=== PATIENT | male | born 1950 | race Caucasian/White ===

== ENCOUNTER 2023-08-21 08:23 | Inpatient (IN) | payer MEDICARE, OTHER ==
[2023-08-21 08:50] LABS: #Basophils Less than 0.03 10x3/uL (0.0-0.2); %Basophils 0.4 % (0.0-1.0); %Eosinophils 2.5 % (0.0-10.0); %Lymphocytes 11.7 % (21.0-51.0); %Monocytes 11.5 % (0.0-10.0); %Neutrophils 73.7 % (42.0-75.0); Hematocrit 34.3 % (42.0-52.0); Hemoglobin 10.9 g/dL (14.0-18.0); Mean Corpuscular HGB CONC 31.8 g/dL (32.0-36.0); Mean Corpuscular Hemoglobin 31.5 pg (27.0-31.0); Mean Corpuscular Volume 99.1 fL (78.0-98.0); Mean Platelet Volume 11.7 fL (7.4-10.4); Platelet Count 188 10x3/uL (130-400); RBC Distribution Width 14.5 % (11.5-14.5); Red Blood Cell (RBC) Count 3.46 mill/uL (4.70-6.10)
[2023-08-21 09:04] LABS: ALT (SGPT) 156 U/L (8-55); AST (SGOT) 161 U/L (5-34); Albumin 2.6 g/dL (3.4-4.8); Alkaline Phosphatase 1101 U/L (40-110); Anion Gap 14 mmol/L (10-20); BUN (Urea Nitrogen) 13 mg/dL (8.4-25.7); Bilirubin, Total 1.8 mg/dL (0.2-1.2); Calc. Creatinine Clearance 0 mL/min (70-130); Calcium 8.9 mg/dL (7.8-10.44); Carbon Dioxide 24 mmol/L (23-31); Chloride 107 mmol/L (98-107); Estimated GFR 90; Globulin 2.9 g/dL (2.4-3.5); Glucose 135 mg/dL (83-110); Lipase 28 U/L (8-78); Potassium 3.3 mmol/L (3.5-5.1); Protein, Total 5.5 g/dL (5.8-8.1); Sodium 142 mmol/L (136-145)
[2023-08-21 09:09] LABS: Troponin I 0.013 ng/mL (< 0.028)
[2023-08-21] MEDS ORDERED: Iopamidol-370 76% 500 ML MDV (1 ML CHARGE) ONE (09:16)
[2023-08-21 10:27] LABS: Bacteria/HPF 3+ HPF (None Seen); Bilirubin Negative (Negative); Blood, Urine 1+ (Negative); CAUTI Indications for Culture Alt mental st,lethar; Clarity Clear (Clear); Glucose, Urine (Dipstick) Normal (Negative); Ketone, Urine Negative (Negative); Leukocyte 500 Leu/uL (Negative); Nitrite 2+ (Negative); Protein, Urine (Dipstick) Negative (Neg-Trace); Squamous Epithelial 0-3 HPF (0-3); Urobilinogen 3 mg/dL (Less than 2); WBC/HPF Greater than 50 HPF (0-3); pH, Urine 6.5 (5.0-9.0)
[2023-08-21 10:35] LABS: Urine Culture Reflex Yes Yes
[2023-08-21] MEDS ORDERED: Sodium Chloride 0.9% 100 ML ONE (10:55)
[2023-08-21] MEDS ORDERED: cefTRIAXone (ROCEPHIN) 1 GM VIAL ONE (10:55)
[2023-08-21] MEDS ORDERED: Dextrose 5% in Water 1,000 ML IV PRN (11:08)
[2023-08-21] MEDS ORDERED: HumaLOG 300 UNITS/3 ML VIAL SC PRN ×2 (11:08)
[2023-08-21] MEDS ORDERED: Dextrose 50% Abboject 50 ML SYRINGE SLOW IVP PRN (11:08)
[2023-08-21] MEDS ORDERED: Ondansetron ODT 4 MG TAB PO PRN (11:08)
[2023-08-21] MEDS ORDERED: Acetaminophen 325 MG TAB PO PRN (11:08)
[2023-08-21] MEDS ORDERED: Glucagon 1 MG/ML KIT IM PRN (11:08)
[2023-08-21 12:25] LABS: ALT (SGPT) 155 U/L (8-55); AST (SGOT) 155 U/L (5-34); Albumin 2.6 g/dL (3.4-4.8); Alkaline Phosphatase 1120 U/L (40-110); Anion Gap 16 mmol/L (10-20); BUN (Urea Nitrogen) 12 mg/dL (8.4-25.7); Bilirubin, Total 1.7 mg/dL (0.2-1.2); Calc. Creatinine Clearance 0 mL/min (70-130); Carbon Dioxide 20 mmol/L (23-31); Chloride 109 mmol/L (98-107); Estimated GFR 93; Gamma GT (GGT) 764 U/L (12-64); Globulin 3.1 g/dL (2.4-3.5); Glucose 114 mg/dL (83-110); Potassium 3.7 mmol/L (3.5-5.1); Protein, Total 5.7 g/dL (5.8-8.1); Sodium 141 mmol/L (136-145)
[2023-08-21] MEDS ORDERED: ALPRAZolam 0.25 MG TAB PO PRN (14:52)
[2023-08-21 18:14] VITALS: BMI 43.0
[2023-08-21] MEDS: Potassium Chloride 20 MEQ TAB PO SCH ×2 (19:22)
[2023-08-21] MEDS: Famotidine 20 MG TAB PO SCH (21:37)
[2023-08-22 04:57] LABS: #Basophils Less than 0.03 10x3/uL (0.0-0.2); %Basophils 0.5 % (0.0-1.0); %Eosinophils 2.9 % (0.0-10.0); %Lymphocytes 15.2 % (21.0-51.0); %Monocytes 11.4 % (0.0-10.0); %Neutrophils 69.8 % (42.0-75.0); Hematocrit 34.1 % (42.0-52.0); Hemoglobin 10.8 g/dL (14.0-18.0); Mean Corpuscular HGB CONC 31.7 g/dL (32.0-36.0); Mean Corpuscular Hemoglobin 31.2 pg (27.0-31.0); Mean Corpuscular Volume 98.6 fL (78.0-98.0); Mean Platelet Volume 11.8 fL (7.4-10.4); Platelet Count 195 10x3/uL (130-400); RBC Distribution Width 14.4 % (11.5-14.5); Red Blood Cell (RBC) Count 3.46 mill/uL (4.70-6.10)
[2023-08-22 05:18] LABS: Hemoglobin A1c 5.9 % (4.0-6.0)
[2023-08-22 05:25] LABS: ALT (SGPT) 127 U/L (8-55); AST (SGOT) 115 U/L (5-34); Albumin 2.5 g/dL (3.4-4.8); Alkaline Phosphatase 1031 U/L (40-110); Anion Gap 15 mmol/L (10-20); BUN (Urea Nitrogen) 9 mg/dL (8.4-25.7); Bilirubin, Total 1.5 mg/dL (0.2-1.2); Calc. Creatinine Clearance 169 mL/min (70-130); Calcium 8.8 mg/dL (7.8-10.44); Carbon Dioxide 25 mmol/L (23-31); Cardiac Risk 2.8 (Less than 4.5); Chloride 109 mmol/L (98-107); Cholesterol 139 mg/dl (< 200 Desired); Estimated GFR 95; Globulin 2.8 g/dL (2.4-3.5); Glucose 89 mg/dL (83-110); HDL Cholesterol 49 mg/dL (>60 Neg Risk); Iron 44 ug/dL (65-175); Iron Binding Capacity, Total 196 mcg/dL (261-462); LDL Cholesterol, Calculated 77 mg/dL; Potassium 3.8 mmol/L (3.5-5.1); Protein, Total 5.3 g/dL (5.8-8.1); Sodium 145 mmol/L (136-145); Triglycerides 65 mg/dL (Less than 150)
[2023-08-22 05:35] LABS: Iron 44 ug/dL (65-175); Iron Binding Capacity, Total 190 mcg/dL (261-462)
[2023-08-22 05:46] LABS: Ferritin 398.12 ng/mL (22-322)
[2023-08-22] MEDS: Lorazepam 2 MG/ML VIAL SLOW IVP PRN (10:28)
[2023-08-22] MEDS: cefTRIAXone\\ROCEPHIN 1 GM in Sodium Chloride 0.9% 100 ML IVPB SCH (10:35)
[2023-08-22] MEDS ORDERED: Iopamidol 370 76% 100 ML VIAL ONE (11:03)
[2023-08-22 14:02] LABS: Thyroid Stimulating Hormone 1.8847 uIU/mL (0.35-4.94)
[2023-08-22] MEDS: Lisinopril 10 MG TAB PO SCH (17:07)
[2023-08-22] MEDS: Apixaban 5 MG TAB PO SCH (21:13)
[2023-08-22] MEDS: Atorvastatin Calcium 40 MG TAB PO SCH (21:13)
[2023-08-23 04:08] LABS: #Basophils 0.03 10x3/uL (0.0-0.2); %Basophils 0.8 % (0.0-1.0); %Eosinophils 3.8 % (0.0-10.0); %Monocytes 13.9 % (0.0-10.0); %Neutrophils 63.2 % (42.0-75.0); Hemoglobin 10.6 g/dL (14.0-18.0); Mean Corpuscular HGB CONC 32.1 g/dL (32.0-36.0); Mean Corpuscular Hemoglobin 30.6 pg (27.0-31.0); Mean Corpuscular Volume 95.4 fL (78.0-98.0); Mean Platelet Volume 11.7 fL (7.4-10.4); Platelet Count 193 10x3/uL (130-400); RBC Distribution Width 14.3 % (11.5-14.5); Red Blood Cell (RBC) Count 3.46 mill/uL (4.70-6.10)
[2023-08-23 04:22] LABS: ALT (SGPT) 123 U/L (8-55); AST (SGOT) 132 U/L (5-34); Albumin 2.4 g/dL (3.4-4.8); Alkaline Phosphatase 990 U/L (40-110); Anion Gap 14 mmol/L (10-20); BUN (Urea Nitrogen) 8 mg/dL (8.4-25.7); Bilirubin, Total 1.5 mg/dL (0.2-1.2); Calc. Creatinine Clearance 166 mL/min (70-130); Calcium 8.5 mg/dL (7.8-10.44); Carbon Dioxide 25 mmol/L (23-31); Chloride 108 mmol/L (98-107); Estimated GFR 95; Globulin 2.6 g/dL (2.4-3.5); Glucose 88 mg/dL (83-110); Potassium 3.4 mmol/L (3.5-5.1); Sodium 144 mmol/L (136-145)
[2023-08-23] MEDS: Potassium Chloride 20 MEQ TAB PO SCH (06:14)
[2023-08-23 08:12] LABS: Magnesium 1.7 mg/dL (1.6-2.6); Phosphorus 2.7 mg/dL (2.3-4.7)
[2023-08-23] MEDS ORDERED: Metoprolol Tartrate 50 MG TAB PO SCH (09:00)
[2023-08-23] MEDS ORDERED: Lisinopril 5 MG TAB PO SCH (09:00)
[2023-08-23] MEDS: Ferrous Sulfate 325 MG TAB PO SCH (09:24)
[2023-08-23] MEDS: Furosemide 40 MG TAB PO SCH (09:24)
[2023-08-23] MEDS: Cholecalciferol 1,000 UNITS (25 MCG) TAB PO SCH (09:24)
[2023-08-23] MEDS: Lisinopril 20 MG TAB PO SCH (09:25)
[2023-08-23] MEDS: Gabapentin 300 MG CAP PO SCH (09:25)
[2023-08-23] MEDS: Allopurinol 300 MG TAB PO SCH (09:26)
[2023-08-23] MEDS: Aspirin 81 mg Enteric Coated Tablet PO SCH (09:26)
[2023-08-23] MEDS: Pantoprazole DR 40 MG TAB PO SCH (09:26)
[2023-08-23] MEDS: Multivitamin W/ Minerals 1 TAB PO SCH (09:26)
[2023-08-23] MEDS: Magnesium 2 GM/50 ML(in water) 2 GM in Premix 1 BAG IVPB SCH (11:47)
[2023-08-23] MEDS: Mecobalamin [B12 Active] 1,000 MCG Tab.Chew PO SCH (13:55)
[2023-08-23] MEDS: VIT C PO SCH (13:55)
[2023-08-23] MEDS: ZINC CITRATE PO SCH (13:55)
[2023-08-23] MEDS: ELDERBERRY PO SCH (13:55)
[2023-08-23 17:25] VITALS: BP 137/78; TEMP 97.5
== END 2023-08-23 17:25 | disposition home or self-care (01) | DRG 69 ==
LOC: ERS 08:23 → ERHOLD 10:35 → 2SE 16:58 → OBSVTOIN 08-22 16:21
PROVIDERS: ADMIT Family Medicine; ATTEND Family Medicine
DX: G45.9 Transient cerebral ischemic attack, unspecified (principal); N39.0 Urinary tract infection, site not specified; Z68.41 Body mass index [BMI] 40.0-44.9, adult; I48.0 Paroxysmal atrial fibrillation; D64.9 Anemia, unspecified; E80.6 Other disorders of bilirubin metabolism; E11.9 Type 2 diabetes mellitus without complications; I25.10 Atherosclerotic heart disease of native coronary artery without angina pectoris; I10 Essential (primary) hypertension; E66.9 Obesity, unspecified; D72.819 Decreased white blood cell count, unspecified; Z66 Do not resuscitate; Z86.73 Personal history of transient ischemic attack (TIA), and cerebral infarction without residual deficits; Z95.5 Presence of coronary angioplasty implant and graft; Z90.49 Acquired absence of other specified parts of digestive tract; Z98.890 Other specified postprocedural states; Z79.899 Other long term (current) drug therapy; Z79.82 Long term (current) use of aspirin; Z79.01 Long term (current) use of anticoagulants
CPT/HCPCS: 36415; 36416; 70450; 70496; 70498; 70551; 71045; 74177; 76705; 80053; 80061; 81001; 82248; 82728; 82977; 83036; 83540; 83550; 83690; 83735; 84100; 84443; 84484; 85025; 87077; 87086; 87186; 93005; 93306; 96375; 96376; G0378; J0696; J2060; J3475; J3490; Q9967